=== PATIENT | female | born 1985 | race African-American/Black ===

== ENCOUNTER 2019-03-16 10:16 | Emergency (ER) | payer OTHER ==
[~2019-03-16] VITALS: Ht 172.7 cm; Wt 89.8 kg
[~2019-03-16 10:16] MED LIST: CALCIUM 500 +1 EAC5 PO; HYCET 7.5 MG-3473 ML PO; LISINOPRIL20 MG PO; METOPROLOL TART25 MG PO; MULTIVITAMINS PO; ZOFRAN ODT4 MG DISSOLVE
[2019-03-16 10:17] VITALS: BP 119/71
[2019-03-16] MEDS ORDERED: PREDNISONE 10 M10 MG PO (11:14)
[2019-03-16] MEDS ORDERED: NORFLEX100 MG PO (11:14)
== END 2019-03-16 11:27 | disposition home or self-care (01) ==
LOC: ER 10:16
DX: M54.31 Sciatica, right side (principal); I10 Essential (primary) hypertension; J45.909 Unspecified asthma, uncomplicated; Z90.710 Acquired absence of both cervix and uterus; Z90.721 Acquired absence of ovaries, unilateral